=== PATIENT | female | born 1960 | race Caucasian/White ===

== ENCOUNTER 2019-04-30 06:06 | Inpatient (IN) | payer SELFPAY ==
[~2019-04-30] VITALS: Ht 170.2 cm; Wt 63.5 kg
[2019-04-30] VITALS (10 sets, daily range): BP systolic 102–133; BP diastolic 49–77; BMI 21.9
[2019-04-30 06:55] LABS: HEMATOCRIT 44.5 % (36.0-48.0); HEMOGLOBIN 14.7 g/dL (12-16); MCH 30.6 pg (26.0-34.0); MCV 92.5 fL (80.0-100.0); MEAN PLATELET VOLUME 10.3 fL (7.4-10.4); NEUTROPHILS 78.2 % (40-80); PLATELET COUNT 203 10x3/uL (130-400); RBC 4.81 10x6/uL (4.00-5.40); RDW 12.9 % (11.5-14.5); WBC 8.8 10x3/uL (4.8-10.8)
[2019-04-30 07:00] LABS: CALC OSMOLALITY 280 mosm/kg (275-300); CALCIUM 9.1 mg/dL (8.5-10.1); CARBON DIOXIDE 22.8 mmol/L (21.0-32.0); CHLORIDE - SERUM 103 mmol/L (98-107); CREATININE - SERUM 0.8 mg/dL (0.6-1.3); GLUCOSE 125 mg/dL (74-106); POTASSIUM - SERUM 3.8 mmol/L (3.5-5.1); SODIUM 140 mmol/L (136-145); UREA NITROGEN 14 mg/dL (7-18); eGFR NON AFRICAN AMERICAN 78 mL/min (90-120)
[2019-04-30 07:02] LABS: ALBUMIN 3.7 g/dL (3.4-5.0); ALKALINE PHOSPHATASE 100 U/L (30-120); ALT (SGPT) 21 U/L (10-68); BILIRUBIN - TOTAL 0.68 mg/dL (0.2-1.3); C-REACTIVE PROTEIN 13.5 mg/dL (0.0-0.9); PROTEIN - SERUM 7.4 g/dL (6.4-8.2)
--- NOTE | 2019-04-30 07:23 | NUR ---
REPORT RECEIVED FROM PM RN, PATIENT RESTING SUPINE NO REQUEST AT THIS TIME.
[2019-05-01 00:30] VITALS: BP 100/52
[2019-05-01 04:00] VITALS: BP 138/63; BP 142/72
[2019-05-01 06:09] LABS: ALBUMIN 3.2 g/dL (3.4-5.0); ALKALINE PHOSPHATASE 85 U/L (30-120); ALT (SGPT) 19 U/L (10-68); BILIRUBIN - TOTAL 0.58 mg/dL (0.2-1.3); CALC OSMOLALITY 274 mosm/kg (275-300); CALCIUM 8.1 mg/dL (8.5-10.1); CHLORIDE - SERUM 104 mmol/L (98-107); CREATININE - SERUM 0.7 mg/dL (0.6-1.3); GLUCOSE 108 mg/dL (74-106); POTASSIUM - SERUM 3.8 mmol/L (3.5-5.1); PROTEIN - SERUM 6.7 g/dL (6.4-8.2); SODIUM 137 mmol/L (136-145); UREA NITROGEN 13 mg/dL (7-18); eGFR NON AFRICAN AMERICAN > 90 mL/min (90-120)
[2019-05-01 06:27] LABS: HEMATOCRIT 38.5 % (36.0-48.0); HEMOGLOBIN 12.4 g/dL (12-16); LYMPHOCYTES 11.3 % (15-50); MCH 30.1 pg (26.0-34.0); MCHC 32.2 g/dL (31.0-37.0); MCV 93.4 fL (80.0-100.0); MEAN PLATELET VOLUME 10.9 fL (7.4-10.4); NEUTROPHILS 80.8 % (40-80); RBC 4.12 10x6/uL (4.00-5.40); RDW 12.6 % (11.5-14.5); WBC 9.2 10x3/uL (4.8-10.8)
[2019-05-01 06:28] LABS: PLATELET COUNT 153 10x3/uL (130-400)
--- NOTE | 2019-05-01 06:50 | NUR ---
ALERT AND ORIENTED. NO C/O PAIN. NO S/S OF ACUTE DISTRESS NOTED. NPO AFTER MIDNIGHT D/T PROCEDURE TODAY. IV TO LEFT FOREARM, NS INFUSING @ 50ML/HR. SITE PATENT WITHOUT REDNESS OR SWELLING.DENIES ANY NEEDS AT THIS TIME. CALL LIGHT IN REACH. WILL CONTINUE TO MONITOR.
[2019-05-01 08:17] VITALS: BP 103/55
--- NOTE | 2019-05-01 10:00 | NUR ---
GAVE PATIENT PRE OP MEDS, TAKEN BY OR STAFF TO SURGERY.
--- NOTE | 2019-05-01 11:56 | NUR ---
I have reviewed this patient and I concur with the Shift Assessment completed by the Licensed Practical Nurse today this shift.
[2019-05-01 12:53] VITALS: BP 108/73
--- NOTE | 2019-05-01 12:59 | NUR ---
RECEIVED PATIENT FROM RECOVERY. ALERT AND ORIENTED. NO C/O PAIN. NO S/S OF ACUTE DISTRESS NOTED. INCISION TO LEFT INGUINAL AREA, C/D/I. JEFF DRAIN TO LEFT INGUINAL AREA. DENIES ANY NEEDS AT THIS TIME. CALL LIGHT IN REACH. WILL CONTINUE TO MONITOR.
--- NOTE | 2019-05-01 15:43 | MORECARE ---
CASE MANAGEMENT DISCHARGE SUMMARY PATIENT: LILI LOWE UNIT: [id number] ADM DATE: 04/30/19 AGE: 58 : 58 SEX: F ROOM/BED: D.2203 AUTHOR: MELISSA HUNT PHYSICIAN: REFERRING PHYSICIAN: YA DIOP MD DATE OF SERVICE: 05/01/19 Discharge Plan Patient Name: LILI LOWE Facility: [facility]:[place] : 1960 Planned Disposition: Home Anticipated Discharge Date: Discharge Date: Expected LOS: Initial Reviewer: [email or web address] Initial Review Date: 04/30/2019 Generated: 05/01/19 4:42 pm Patient Name: LILI LOWE Page 71806 at 1543 All edits/amendments must be made on the electronic document DICTATION DATE: 05/01/19 154 CREDIT RELATIONSHIP MANAGER: MAYNOR 05/01/191541 RPT#: [id number] DC DATE: STATUS: ADM IN [facility] [address] [place] [address] END OF REPORT
--- NOTE | 2019-05-01 15:52 | MORECARE ---
CASE MANAGEMENT DISCHARGE SUMMARY PATIENT: LILI LOWE UNIT: [id number] ADM DATE: 04/30/19 AGE: 58 : 58 SEX: F ROOM/BED: D.2203 AUTHOR: MELISSA HUNT PHYSICIAN: REFERRING PHYSICIAN: YA DIOP MD DATE OF SERVICE: 05/01/19 Discharge Plan Patient Name: LILI LOWE [facility] [facility] 1960 Planned Disposition: Home Anticipated Discharge Date: Discharge Date: Expected LOS: Initial Reviewer: [email or web address] Initial Review Date: 04/30/2019 Generated: 05/01/19 4:52 pm DCPIA - Discharge Planning Initial Assessment Updated by [email or web address]: Kimmie Terry on 05/01/19 3:43 pm * Is the patient Alert and Oriented? Yes * How many steps to enter\exit or inside your home? 3-4 * PCP NO PCP * Pharmacy [facility] * Preadmission Environment Home with Family * ADLs Independent * List name and contact numbers for known caregivers / representatives who currently or will assist patient after discharge: JEANNINE LOWE - [facility]- [phone] * Verbal permission to speak to the caregivers and representatives has been obtained from the patient. Yes * Community resources currently utilized None * Additional services required to return to the preadmission environment? No * Can the patient safely return to the preadmission environment? Yes * Has this patient been hospitalized within the prior 30 days at any hospital? No Last DP export: 05/01/19 2:43 p Patient Name: LILI LOWE Page [id number] at 1552 All edits/amendments must be made on the electronic document DICTATION DATE: 05/01/19 155 LICENSED PROSTHETIST: MAYNOR 05/01/191551 RPT#: [id number] DC DATE: STATUS: ADM IN [facility] [address] [place] [address] END OF REPORT
--- NOTE | 2019-05-01 16:10 | MORECARE ---
CASE MANAGEMENT DISCHARGE SUMMARY PATIENT: LILI LOWE UNIT: [id number] ADM DATE: 04/30/19 AGE: 58 : 58 SEX: F ROOM/BED: D.2203 AUTHOR: MARILEE,DOC PHYSICIAN: REFERRING PHYSICIAN: YA DIOP MD DATE OF SERVICE: 05/01/19 Discharge Plan Patient Name: LILI LOWE Facility: [facility]:[place] : 1960 Planned Disposition: Home Anticipated Discharge Date: Discharge Date: Expected LOS: Initial Reviewer: [email or web address] Initial Review Date: 04/30/2019 Generated: 05/01/19 5:10 pm Comments DCP- Discharge Planning Updated by [email or web address]: Kimmie Terry on 05/01/19 3:[address] Patient Name: LILI LOWE Admission Status: ER Accout number: [id number] Admission Date: 04-30-2019 : 1960 Admission Diagnosis: Attending: YA DIOP Current LOS: 1 Anticipated DC Date: Planned Disposition: Home Primary Insurance: UNINSURED DISCOUNT PLAN Discharge Planning Comments: CM met with patient to complete initial dc planning assessment. CM educated patient on the CM role and verbal consent given by patient to complete assessment. Patient lives at with her . At discharge patient plans to return home and feels this is a safe discharge. CM discussed availability of home health, rehab services, and medical equipment. Patient denied known discharge needs at this time. Patient may need assistance with meds on discharge d/t no insurance. CM did call med-data and patient is over income for Medicaid. CM will continue to follow and will assist as needed with dc plans/needs. Station Installer And Repairer: Kimmie Terry DCPIA - Discharge Planning Initial Assessment Updated by [email or web address]: Kimmie Terry on 05/01/19 3:43 pm * Is the patient Alert and Oriented? Yes * How many steps to enter\exit or inside your home? 3-4 * PCP NO PCP * Pharmacy [facility] * Preadmission Environment Home with Family * ADLs Independent * List name and contact numbers for known caregivers / representatives who currently or will assist patient after discharge: JEANNINE LOWE - [employer]- [phone] * Verbal permission to speak to the caregivers and representatives has been obtained from the patient. Yes * Community resources currently utilized None * Additional services required to return to the preadmission environment? No * Can the patient safely return to the preadmission environment? Yes * Has this patient been hospitalized within the prior 30 days at any hospital? No Last DP export: 05/01/19 2:52 p Patient Name: LILI LOWE Page 11352 at 1610 All edits/amendments must be made on the electronic document DICTATION DATE: 05/01/19 1610 SERVICE DEPARTMENT MANAGER: MAYNOR 05/01/19 1610 RPT#: [id number] DC DATE: STATUS: ADM IN [facility] [address] [place] [address] END OF REPORT
[2019-05-01 17:58] VITALS: BP 113/64
--- NOTE | 2019-05-01 18:39 | NUR ---
ALERT AND ORIENTED. NO C/O PAIN. NO S/S OF ACUTE DISTRESS NOTED. DENIES ANY NEEDS AT THIS TIME. CALL LIGHT IN REACH. WILL CONTINUE TO MONITOR.
[2019-05-01 22:42] VITALS: BP 122/70
--- NOTE | 2019-05-02 01:29 | NUR ---
PT RESTING IN BED. EYES CLOSED. NO SIGNS OF DISTRESS. BREATHING EVEN AND UNLABORED. IV SITE RT WRIST DRESSING CLEAN DRY AND INTACT. BOWEL SOUNDS ACTIVE. LUNG SOUNDS CLEAR. SKIN CLEAN DRY AND INTACT. LT GROIN JEFF DRAIN DRESSING CLEAN DRY AND INTACT. WILL CONTINUE PLAN OF CARE. CALL LIGHT IN REACH. BED LOWERED AND LOCKED. BED RAILS UPX2.
[2019-05-02 01:42] VITALS: BP 127/60
[2019-05-02 04:50] LABS: BASOPHILS 0.1 % (0-2); EOSINOPHILS 1.1 % (0-7); HEMATOCRIT 36.9 % (36.0-48.0); HEMOGLOBIN 11.7 g/dL (12-16); IMMATURE GRANULOCYTES 0.1 % (0-5); MCH 30.2 pg (26.0-34.0); MCHC 31.7 g/dL (31.0-37.0); MCV 95.3 fL (80.0-100.0); MEAN PLATELET VOLUME 10.5 fL (7.4-10.4); MONOCYTES 9.1 % (2-11); NEUTROPHILS 74.6 % (40-80); RBC 3.87 10x6/uL (4.00-5.40); RDW 12.8 % (11.5-14.5); WBC 7.1 10x3/uL (4.8-10.8)
[2019-05-02 05:03] LABS: CALC OSMOLALITY 276 mosm/kg (275-300); CALCIUM 8.2 mg/dL (8.5-10.1); CARBON DIOXIDE 24.7 mmol/L (21.0-32.0); CHLORIDE - SERUM 105 mmol/L (98-107); CREATININE - SERUM 0.6 mg/dL (0.6-1.3); GLUCOSE 80 mg/dL (74-106); PLATELET COUNT 229 10x3/uL (130-400); POTASSIUM - SERUM 3.6 mmol/L (3.5-5.1); SODIUM 140 mmol/L (136-145); UREA NITROGEN 10 mg/dL (7-18); eGFR NON AFRICAN AMERICAN > 90 mL/min (90-120)
[2019-05-02 06:18] VITALS: BP 120/70
--- NOTE | 2019-05-02 07:10 | NUR ---
PT IS RESTING IN BED WITH EYES OPEN. RESPIRATIONS ARE EVEN AND UNLABORED. PT IS AAO X 4. AND REPORTS A BURNING PAIN TO LEFT GROIN WHERE JEFF DRAIN INSERTED. PT DENIES ANALGESIA AT THIS TIME. PT DENIES PRESENCE OF N/V. PT SPOUSE AT BEDSIDE. BLE PEDAL PULSES PALP AND CAP REFILL < 3. BED IS IN THE LOWEST POSITION. CALL LIGHT AND BEDSIDE TABLE ARE WITIHN REACH. SIDE RAILS X 2. PT DENIES FURTHER NEEDS. WILL CONT TO MONITOR.
[2019-05-02 08:41] VITALS: BP 121/58
[2019-05-02 09:02] VITALS: Ht 170.2 cm; Wt 63.5 kg
--- NOTE | 2019-05-02 11:16 | NUR ---
PIV TO RIGHT WRIST TENDER AND BURNING PER PT. PIV REMOVED WITH CATHETER TIP INTACT. DRESSING APPLIED. PIV RESITE TO RIGHT HAND 22G. PT TOLERATED WELL AND PIV INFUSING PER ORDER WITHOUT DIFFICULTY. BED IS IN THE LOWEST POSITION. CALL LIGHT AND BEDSIDE TABLE ARE WITHIN REACH. SIDE RAILS X 2. PT DENIES FURTHER NEEDS. WILL CONT TO MONITOR.
--- NOTE | 2019-05-02 11:53 | CN ---
PATIENT NAME:LILI LOWE MEDICAL RECORD: [id number] : 58 LOCATION:D.MS Ayala3 ADMIT DATE: 04/30/19 ACCOUNT: [id number] CONSULTING PHYSICIAN: ALEKSEY MARQUEZ MD REFERRING PHYSICIAN: YA DIOP MD DATE OF CONSULTATION: 05/01/2019 HISTORY OF PRESENT ILLNESS: A 58-year-old female with no known cardiovascular history, really quite healthy otherwise. Symptomatology began Monday with inguinal pain prior to presenting to the ER, found to have abscess. She underwent CT, which showed questionable small loculated pericardial effusion. 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 This is not large enough to cause any changes in flow. We are asked to see her preoperatively. PAST MEDICAL HISTORY: Unremarkable. ALLERGIES: None known. MEDICATIONS: None chronically. SOCIAL HISTORY: . Nonsmoker and nondrinker. Easily takes care of all her ADLs, stays quite active. REVIEW OF SYSTEMS: The patient reports easy bruising but reports no swollen glands. The patient reports no fever, no night sweats, no significant weight gain, no significant weight loss. No significant exercise tolerance. The patient reports no dry eyes, no irritation, no vision change. Patient reports no difficulty hearing and no ear pain. Patient reports no frequent nose bleeds or nose and sinus problems. Patient reports on arm pain on exertion. No shortness of breath while lying down. No history of heart murmur. Patient reports no cough, no wheezing or coughing up blood. Patient reports no abdominal pain, no vomiting. Normal appetite. No diarrhea and not vomiting blood. No nausea and no constipation. Patient reports no incontinence. No difficulty urinating. No hematuria. No increased frequency. Patient reports no muscle aches. No weakness, no arthralgias, no back pain. No swelling of the extremities. Patient reports no abnormal mole, no jaundice, no rashes. Reports no loss of consciousness. No weakness and no numbness. No seizures, dizziness, or headaches. The patient reports no depression, no sleep disturbance, feeling safe in a relationship and no alcohol abuse. Patient reports on fatigue. Reports no runny nose or sinus pressure. No itching, no hives, and no frequent sneezing. PHYSICAL EXAMINATION: GENERAL: Pleasant female in no acute distress, appears stated age. VITAL SIGNS: Blood pressure 103/55, pulse 50 and regular. HEENT: Normocephalic, atraumatic. NECK: No JVD or bruit. HEART: Regular, II/ systolic ejection murmur. LUNGS: Good air excursion. ABDOMEN: Soft, nontender. EXTREMITIES: Pulses well preserved, 2+ with no edema. NEUROLOGIC: Grossly intact. DIAGNOSTIC DATA: Echocardiographic study shows, is essentially normal with a CONSULT REPORT [id number] LILI LOWE which is normal variant. IMPRESSION: No contraindication to surgery. No increased risk from a cardiovascular standpoint. Thank you for the consultation. TRANSINT:[id number] Voice Confirmation ID: [id number] DOCUMENT ID: [id number] ALEKSEY MARQUEZ MD at 1153 CC: [id number] DICTATION DATE: 05/01/19911 OCC MED PHYSICIAN: 05/01/[address] [facility] [address] [place] [address]
--- NOTE | 2019-05-02 11:53 | EC ---
PATIENT:LILI LOWE DATE OF SERVICE: 04/30/19 SEX: F MEDICAL RECORD: [id number] DATE OF : 58 LOCATION:[facility] AGE OF PATIENT: 58 ADMISSION DATE: 04/30/19 REFERRING PHYSICIAN: INTERPRETING PHYSICIAN: ALEKSEY MARQUEZ MD ECHOCARDIOGRAM REPORT ECHO CHARGES Date: CLINICAL DIAGNOSIS: ECHOCARDIOGRAPHIC MEASUREMENTS (adult normal given) AC root (d.<3.7cm) cm LV Septum d (<1.2 cm> cm Valve Excursion cm LV Septum (systole) cm Left Atria (s.<4.0cm> cm LVPW d(<1.2cm) cm RV (d.<2.3cm) cm LVPW (sytole) cm LV diastole(<5.6CM) cm MV E-F(>70mm/sec) cm LV systole cm LVOT Diameter cm MV exc.(>10mm) cm Est.ejection fraction (50-75%) % DOPPLER: LVIT cm/sec A cm/sec E cm/sec LA cm/sec RVSP mmHg LVOT cm/sec AOP1/2T m/s Asc. Ao cm/sec RVOT cm/sec RA cm/sec PA cm/sec AV Gradient Peak mmHg AV Mean mmHg AV Area cm MV Gradient Peak mmHg MV Mean mmHg MV Area cm COMMENTS: Passenger Screener: Billet Cutter: KEEGAN# Pericardial Effusion DATE OF SERVICE: Adequate 2D, color flow imaging, spectral Doppler, and M-Mode. No LVH. LV internal dimension is normal. Wall motion is normal. EF is greater than or equal to 55%. Aortic valve is tricuspid. No evidence of stenosis by Doppler interrogation. Left atrium is normal. Mitral valve appears normal and no prolapse. Trace MR. Right-sided chambers are grossly normal. Trace TR. 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 ECHOCARDIOGRAM REPORT [id number] LILI LOWE TRANSINT:[id number] Voice Confirmation ID: [id number] DOCUMENT ID: [id number] ALEKSEY MARQUEZ MD at 1153 CC: [id number] DICTATION DATE: 05/01/19 1243 SPOT CHECKER: 05/01/19 1309 ADM IN [address] [place] [address]
[2019-05-02 12:25] VITALS: BP 131/101
--- NOTE | 2019-05-02 12:45 | NUR ---
DR MOELLER AT BEDSIDE. OK FOR DISCHARGE HOME WITH FOLLOW UP WITH DR MOELLER IN 2 WEEKS.
--- NOTE | 2019-05-02 14:07 | NUR ---
JEFF DRAIN REMOVED PER ORDER. DRAIN BULB DECOMPRESSED. SUTURES REMOVED AND DRAIN PULLED. SCANT AMOUNT OF BLOODY DRAINAGE NOTED TO COLLECTION BULB. DRESSING APPLIED. BED IS IN THE LOWEST POSITION. CALL LIGHT AND BEDSIDE TABLE ARE WITHIN REACH. SIDE RAILS X 2. PT DENIES FURTHER NEEDS. WILL CONT TO MONITOR.
[2019-05-02] MEDS ORDERED: HYDROCODON-ACE1 EAC7 PO (15:22)
--- NOTE | 2019-05-02 15:37 | OP ---
PATIENT NAME: LILI LOWE MEDICAL RECORD: [id number] :58 LOCATION:D.MS [id number] ADMISSION DATE:04/30/19 SURGEON: KIRAN VALDES MD DATE OF OPERATION: 05/01/2019 PREOPERATIVE DIAGNOSIS: Left groin lymphadenopathy. POSTOPERATIVE DIAGNOSIS: Left groin lymphadenopathy. PROCEDURE: Excisional left groin lymph node biopsies (times 2). SURGEON: Kiran Valdes MD REGULATORY COMPLIANCE ENGINEER: Braulio Watkins, formerly [facility]. BLOOD LOSS: Minimal. ANESTHESIA: General. COMPLICATIONS: None. DRAINS: 10-Ugandan flat closed suction drainage system. The risks, possible complications, and alternatives to the procedure were explained to the patient. She elects to proceed. The discussion specifically included, but was not limited to, bleeding requiring emergency reoperation, infection, nerve injury also with blood vessel injury. OPERATIVE COURSE: The patient was conveyed to the operating room electively on 05/01/2019. General anesthesia was induced by the anesthesia staff. The lower abdomen, genitals, left thigh and left groin was sterilely prepped and draped. An incision was accomplished in the left groin crease. I sharply dissected down through the skin and subcutaneous tissues. Cephalad, I identified a very large lymph node, which could be seen under ultrasonographic guidance. I bluntly dissected around this large lymph node. Some of this dissection was performed with the Harmonic scalpel as well. The hilar vessels were cauterized and divided with the Harmonic scalpel. The lymph node was then extirpated in its entirety. Bleeding within the lymph gemma cavity was controlled with electrocautery. The lymph node was sent fresh for frozen section analysis, which revealed a probable lymphoma. Under ultrasonographic guidance, I identified another lymph node. This one was located under the inferior skin flap. I bluntly dissected down to the lymph node and it was delivered bluntly. It was partially disrupted in the middle of the lymph node, which was quite large. The hilar vessels were then ligated and divided utilizing the Harmonic scalpel. The lymph node was cultured and then sent for permanent pathologic analysis. I irrigated with hydrogen peroxide. A 10-Ugandan closed suction drainage system was brought out through the inferior skin flap. It was sutured to skin with a 2-0 nylon. The subdermis was approximated with interrupted 3-0 Vicryls. The skin was approximated with a running intracuticular 3-0 Vicryl. Dermabond was then applied. The patient was then extubated and conveyed to post-anesthesia care unit. I OPERATIVE REPORT [id number] LILI LOWE checked on her later and she had good pulses in the left foot. No motor deficits. No paresthesias. No numbness involving the left lower extremity. TRANSINT:[id number] Voice Confirmation ID: [id number] DOCUMENT ID: [id number] KIRAN VALDES MD at 1537 CC: [id number] DICTATION DATE: 05/02/19 1341 POLITICAL CONSULTANT: 05/02/19 1402 ADM IN [place] [id number] [place] [id number]
--- NOTE | 2019-05-02 15:45 | NUR ---
ALL DISCHARGE INSTRUCTIONS COVERED WITH PT AND PT SPOUSE. 4X4 AND TAPE GIVEN TO PT FOR DRESSING CHANGES TO JEFF DRAIN SITE. PT VERBALIZES UNDERSTANDING. PT DENIES FURTHER QUESTIONS/CONCERNS/NEEDS AT THIS TIME. PIV TO RIGHT HAND REMOVED WITH CATHETER TIP INTACT. DRESSING APPLIED. ALL DISCHARGE PAPERS SIGNED. PT ESCORTED OUT VIA WHEELCHAIR FOR TRANSPORTATION HOME. PT THANKS THIS NURSE FOR CARE GIVEN DURING THIS SHIFT.
[2019-05-03 07:10] LABS: HEPATITIS C ANTIBODY <0.1 S/CO RAT (0.0-0.9)
== END 2019-05-02 16:33 | disposition home or self-care (01) | DRG 824 ==
LOC: D.ER 06:06 → D.MS 09:59
PROVIDERS: Family Medicine; Internal Medicine Hematology & Oncology; Surgery; ADMIT Internal Medicine Nephrology; ATTEND Internal Medicine Nephrology
PROC: 07BJ0ZZ Excision of Left Inguinal Lymphatic, Open Approach (ICD-10-PCS; principal; 2019-05-01 10:30)
DX: C85.95 Non-Hodgkin lymphoma, unspecified, lymph nodes of inguinal region and lower limb (principal); I30.9 Acute pericarditis, unspecified; F17.213 Nicotine dependence, cigarettes, with withdrawal; L04.1 Acute lymphadenitis of trunk